=== PATIENT | male | born 1965 ===

== ENCOUNTER 2021-02-20 13:58 | Emergency (ER) | payer OTHER, SELFPAY ==
--- NOTE | ~2021-02-20 | XR_ITS ---
EXAMINATION: XR chest 2V EXAM DATE: 02/20/2021 14:54 INDICATION: Shortness of breath and back pain. TECHNIQUE: Frontal and lateral projections of the chest obtained and reviewed. There is no prior marcos dy for comparison. FINDINGS: There are moderate bilateral subpulmonic pleural effusions with adjacent multisegmental ate lectasis. There is pulmonary vascular congestion edema. Probable CHF exacerbation. Pneumonia not excl udable. There is no pneumothorax suspected. Cardiac silhouette obscured by the pleural effusions. The re are no osseous abnormalities identified. IMPRESSION: 1. Moderate pleural effusions, adjacent multisegmental atelectasis. 2. Probable CHF exacerbation. 3. Pneumonia not excludable. Reviewed, dictated and finalized at location B.
[2021-02-20 14:13] VITALS: BP 107/78; PULSE 106; RESP 18; TEMP 36.7; O2SAT 100
--- NOTE | 2021-02-20 14:46 | ECG_ITS ---
Measurements Intervals [place] Rate: 97 P: 49 [place]: 145 QRS: -55 QRSD: 89 T: 146 QT: 326 QTc: 414 Interpretive Statements SINUS RHYTHM WITH MARKED SINUS ARRHYTHMIA POSSIBLE LEFT ATRIAL ENLARGEMENT LEFT ANTERIOR FASCICULAR BLOCK CANNOT RULE OUT SEPTAL INFARCT, AGE INDETERMINATE ANTERIOR INFARCT- PROBABLY RECENT BASELINE ARTIFACT- I, II, AVR, AVL, AVF, V1, V3-V4, V6 ABNORMAL ECG Electronically Signed On 02-20-2021 20:24:56 CDT by Gavin Contreras D.O.
[2021-02-20 15:05] VITALS: RESP 28
--- NOTE | 2021-02-20 15:08 | ED.SOB ---
HPI - SOB/Dyspnea General Chief Complaint: Shortness of Breath/Dyspnea Stated Complaint: shortness of breath Time Seen by Provider: 02/20/21 14:28 Source: patient, family and RN notes reviewed Mode of arrival: ambulatory Limitations: no limitations History of Present Illness HPI Narrative: Patient presents today complaining of a 10 to 15-day history of shortness of breath that has been slightly improving since onset, and belching. States his symptoms began suddenly. He denies any current chest pain, abdominal pain, palpitations or racing heartbeat, dizziness or lightheadedness, swelling, wheezing. He states a very sporadic dry cough, but denies any recent illness or sick symptoms. States he has some pain in the left chest and back, but only with bending motion. His shortness of breath is worse with exertion. Denies history of GERD or heartburn. He has tried no [id number] treatment for symptoms prior to arrival. Denies any history of asthma or COPD. He is a non-smoker. He does not have a primary care doctor. He recently had some basic labs drawn when they were offered free at his [facility], and states they were normal. Denies any health history. Does not take any medications. MD elicited complaint: shortness of breath Related Data Home Medications Medication Instructions Recorded Confirmed No Home Medications 02/20/21 02/20/21 Allergies Allergy/AdvReac Type Severity Reaction Status Date / Time No Known Allergies Allergy Verified 02/20/21 14:22 Review of Systems Review of Systems: Narrative: CONSTITUTIONAL: Denies body aches, fever, chills, or sweats. EYES: Denies visual changes, redness, or discharge. ENT: Denies rhinorrhea, congestion, sore throat, or otalgia. CARDIOVASCULAR: Denies chest pain, palpitations, or edema. RESPIRATORY: + Shortness of breath, sporadic dry cough GASTROINTESTINAL: Denies abdominal pain, nausea, vomiting, or diarrhea.+ Belching GENITOURINARY: Denies dysuria or hematuria. SKIN: Denies rash, itching, or wounds. MUSCULOSKELETAL: Denies back pain, joint pain, or myalgia. NEUROLOGIC: Denies headache, numbness, tingling, or weakness. PSYCH: Denies depression or anxiety. PMFSH Comments At time of signature, I have reviewed and agree with nursing past medical, surgical, social and family history unless otherwise noted. Please see nursing chart for further information. There is no relevant family history pertinent to the presenting complaint Exam Narrative: Exam Narrative: GENERAL: Well-appearing, well-nourished, and in no acute distress. HEAD: Normocephalic, atraumatic. EYES: EOMI. No redness or drainage. Conjunctivae normal. ENT: Mucous membranes pink and moist. NECK: Normal AROM. Supple. No lymphadenopathy. CHEST: Clear to auscultation. Tachypnea. Patient breathing very shallowly and was unable to take a deep breath. HEART: Regular rhythm. Tachycardia. No murmur appreciated. Normal peripheral pulses. ABDOMEN: Soft, nontender, nondistended, normal active bowel sounds. MUSCULOSKELETAL: No bony tenderness. EXTREMITIES: Normal range of motion. No edema. SKIN: Warm, dry, no rash. Capillary refill normal. Normal skin turgor. NEURO: No focal deficits. Alert and oriented x3. Gait steady. PSYCH: Normal affect. No signs of depression or anxiety. Course Vital Signs Vital signs: Vital Signs Temperature 98.1 F 02/20/21 14:13 Pulse Rate 106 H 02/20/21 14:13 Respiratory Rate 18 02/20/21 14:13 Blood Pressure 107/78 02/20/21 14:13 Pulse Oximetry 100 02/20/21 14:13 Temperature 98.1 F 02/20/21 14:13 Pulse Rate 106 H 02/20/21 14:13 Respiratory Rate 28 H 02/20/21 15:05 Blood Pressure 107/78 02/20/21 14:13 Pulse Oximetry 100 02/20/21 14:13 Reviewed. RR 28 during my exam. Transfer Transfered to: [place] Transportation: Other (Private vehicle) Transfer rationale: Shortness of breath Accepting physician: Misael Martin PA-C MDM - SOB/Dyspnea ECG Data
== END 2021-02-20 15:19 | disposition short-term general hospital (02) ==
PROVIDERS: Emergency Provider Nurse Practitioner
DX: R06.02 Shortness of breath (principal)
CPT/HCPCS: 71046; 93005; 99213; G0463

== ENCOUNTER 2021-02-20 15:42 | Inpatient (IN) | payer OTHER, SELFPAY ==
--- NOTE | ~2021-02-20 | XR_ITS ---
XR chest 2V 02/22/2021 09:38 Indication: CHF Procedure: PA and lateral views of the chest Comparison: 02/20/2021 Findings: Interval resolution of edema. Small residual effusions with compressive atelectasis. No foc al pneumonia or pneumothorax. No acute osseous abnormality. Impression: 1: Small pleural effusions with underlying compressive atelectasis. Reviewed, dictated and finalized at location A. Impression: 1: Small pleural effusions with underlying compressive atelectasis.
--- NOTE | ~2021-02-20 | XR_ITS ---
EXAMINATION: XR chest 2V DATE: 02/24/2021 13:01 INDICATION: Congestive heart failure. TECHNIQUE: Frontal and lateral views of the chest were obtained. COMPARISON: Chest 2 views 02/22/2021 FINDINGS: There are small pleural effusions. There are airspace opacities at the lung bases. No pneum othorax. The heart size is normal. IMPRESSION: 1. Small pleural effusions with worsening on the right. 2. Airspace opacities at the lung bases, likely atelectasis. Reviewed, dictated and finalized at location B.
--- NOTE | ~2021-02-20 | CT_ITS ---
EXAMINATION: CT brain wo con DATE: 02/25/2021 09:26 INDICATION: Head injury. TECHNIQUE: Computed tomography (CT) of the head was performed without intravenous contrast. The mA wa s adjusted according to patient size. Iterative reconstruction technique was employed. The dose-lengt h product was 605.33 mGy-cm. COMPARISON: None FINDINGS: There is no intracranial hemorrhage, acute infarction, or abnormal intracranial mass lesion . The ventricles are normal in size. The orbits are normal. There is mild mucosal thickening in the p aranasal sinuses. The mastoid air cells are normal. There is frontal scalp soft tissue swelling. IMPRESSION: 1. Normal brain. Reviewed, dictated and finalized at location B. IMPRESSION: 1. Normal brain.
--- NOTE | ~2021-02-20 | XR_ITS ---
EXAMINATION: XR chest 2V DATE: 02/20/2021 17:01 INDICATION: Shortest of breath. TECHNIQUE: Frontal and lateral views of the chest were obtained on 3 radiographs. COMPARISON: Chest 2 views at 2:50 PM FINDINGS: There are small pleural effusions. There is a diffuse interstitial pattern, consistent with mild pulmonary edema. No pneumothorax. The heart size is normal. IMPRESSION: 1. Mild pulmonary edema. 2. Small pleural effusions. Reviewed, dictated and finalized at location A.
[2021-02-20 16:33] VITALS: BP 105/83; PULSE 104; RESP 18; TEMP 36.3; O2SAT 99
--- NOTE | 2021-02-20 16:35 | ECG_ITS ---
Measurements Intervals [place] Rate: 102 P: 42 [place]: 130 QRS: -37 QRSD: 86 T: 113 QT: 343 QTc: 447 Interpretive Statements SINUS TACHYCARDIA POSSIBLE LEFT ATRIAL ENLARGEMENT LEFT AXIS DEVIATION CANNOT RULE OUT SEPTAL INFARCT, AGE INDETERMINATE SUBTLE ANTERIOR ST ELEVATION MYOCARDIAL INFARCT- ACUTE BASELINE ARTIFACT- I, III, AVR, AVL, AVF, V6 ABNORMAL ECG Electronically Signed On 02-20-2021 20:27:15 CDT by Gavin Contreras D.O.
[2021-02-20 16:58] LABS: Basophils Absolute Auto 0.1 K/mm3 (0.0-0.1); Basophils Percent Auto 0.8 % (0.2-1.2); Eosinophils Absolute Auto 0.3 K/mm3 (0-0.3); Eosinophils Percent Auto 3.2 % (0-4.4); Hematocrit 38.7 % (42.0-52.0); Hemoglobin 12.9 g/dL (14.0-18.0); Immature Granulocyte Absolute 0.02 K/mm3 (0.00-0.031); Immature Granulocyte Percent A 0.3 % (0-0.5); Lymphocytes Absolute Auto 2.02 K/mm3 (0.9-3.2); Lymphocytes Percent Auto 26.1 % (18.3-44.2); Mean Corpuscular HGB Conc 33.3 g/dl (32-36); Mean Corpuscular Hemoglobin 28.5 pg (26-34); Mean Corpuscular Volume 85.6 fl (80-100); Mean Platelet Volume 9.2 fl (7.4-10.4); Monocytes Absolute Auto 0.7 K/mm3 (0.1-0.6); Monocytes Percent Auto 9.3 % (2.6-8.5); Neutrophils Absolute Auto 4.7 K/mm3 (1.3-6.7); Neutrophils Percent Auto 60.3 % (45.5-73.1); Platelet Count Result 322 k/mm3 (150-375); Red Blood Count 4.52 M/mm3 (4.6-6.20); Red Cell Distribution Width 13.7 % (11.5-14.5); White Blood Count 7.8 K/mm3 (4.5-10.0)
[2021-02-20 17:11] LABS: Anion Gap 5 mmol/L (8-16); Blood Urea Nitrogen 8 mg/dL (9-20); Calcium 9.8 mg/dL (8.4-10.2); Carbon Dioxide 29 mmol/L (22-30); Chloride 103 mmol/L (98-107); Estimated CRCL calculation 88 ml/min; Estimated Glomerular Filt Rate > 60; Glucose 86 mg/dL (75-110); Potassium 4.1 mmol/L (3.4-5.0); Sodium 137 mmol/L (137-145)
[2021-02-20 17:23] VITALS: BP 128/96; PULSE 104; PULSE 109; RESP 31; O2SAT 100
[2021-02-20 17:27] LABS: Troponin I 0.126 ng/mL (0.000-0.034)
[2021-02-20 18:03] LABS: NT Pro B Type Natriuretic Pept 4510 pg/mL (5-100)
[2021-02-20 18:04] VITALS: BP 120/93; PULSE 106; RESP 30; O2SAT 100
--- NOTE | 2021-02-20 18:18 | ED.SOB ---
HPI - SOB/Dyspnea General Chief Complaint: Shortness of Breath/Dyspnea Stated Complaint: SOB Time Seen by Provider: 02/20/21 17:25 Source: patient and family Mode of arrival: ambulatory Limitations: no limitations History of Present Illness HPI Narrative: 55-year-old male Reports a 2-week history of shortness of breath He believes that he recalls the symptoms starting rather suddenly while he was doing some sweeping Presented today because his family was worried that he had not improved He is more dyspneic with exertion He denies a cough or fever, and he denies having had any chest pain He has not gained weight and does not have any new swelling Related Data Home Medications Medication Instructions Recorded Confirmed No Home Medications 02/20/21 02/20/21 Allergies Allergy/AdvReac Type Severity Reaction Status Date / Time No Known Allergies Allergy Verified 02/20/21 14:22 Review of Systems Review of Systems: All systems reviewed & are unremarkable except as noted in HPI and below Constitutional: Constitutional: Reports no additional constitutional complaints, Denies chills, Denies fever(s) and Denies headache(s) Eyes: Eyes: Reports no additional eye complaints and Denies change in vision ENT: Denies headache(s) and Denies sore throat Cardiovascular: Cardiovascular: Denies chest pain, Denies radiating jaw, neck or arm pain and Denies dyspnea Respiratory: Respiratory: Reports cough (Rarely) and Reports dyspnea Gastrointestinal: Gastrointestinal: Denies abdominal pain, Denies diarrhea and Denies vomiting Genitourinary: Genitourinary: Denies dysuria and Denies urinary frequency Musculoskeletal: Musculoskeletal: Denies deformity, Denies arthralgias, Denies joint swelling and Denies numbness Integumentary/Breasts: Skin/Breast: Denies rash and Denies wounds Neurologic: Denies headache(s), Denies focal weakness and Denies numbness Psychiatric: Psychiatric: Reports no additional psychiatric complaints Endocrine: Endocrine: Reports no additional endocrine complaints Hematologic/Lymphatic: Hematologic/Lymphatic: Reports no additional hematologic/lymphatic complaints Allergic/Immunologic: Allergic/Immunologic: Reports no additional allergic/immunologic complaints Exam Const: General: cooperative, no acute distress and alert Orientation/consciousness: patient oriented x3 (alert) HENMT: Head: normal to inspection, normocephalic and atraumatic Ears: external ears normal General nose exam: no epistaxis Eyes: Conjunctivae: conjunctivae normal EOM: EOMs intact bilaterally Neck: Neck: normal visual inspection, supple and no JVD Other: No JVD Resp: Effort & Inspection: normal respiratory effort and not labored Auscultation: clear to auscultation bilaterally, no rales, no rhonchi, no wheezes and other (BS =) Other: Breath sounds are decreased at the bases on both sides Cardio: Rate: regular rate and tachycardic Rhythm: regular rhythm Heart sounds: no murmurs GI: GI Palp: Yes Soft to palpation and No Tenderness to palpation present (GI) Skin: General skin exam: normal color and no rashes or lesions noted Neuro: General: patient oriented x3 (alert) and moves all extremities Speech: normal speech Extrem: General: normal to inspection Other: Trace edema, no tenderness Psych: Affect: normal affect Course Vital Signs Vital signs: Vital Signs Temperature 36.3 C L 02/20/21 16:33 Pulse Rate 104 H 02/20/21 16:33 Respiratory Rate 18 02/20/21 16:33 Blood Pressure 105/83 02/20/21 16:33 Pulse Oximetry 99 02/20/21 16:33 Temperature 36.3 C L 02/20/21 16:33 Pulse Rate 106 H 02/20/21 18:04 Respiratory Rate 30 H 02/20/21 18:04 Blood Pressure 120/93 H 02/20/21 18:04 Pulse Oximetry 100 02/20/21 18:04 MDM - SOB/Dyspnea Lab Data Result diagrams: 02/20/21 16:49 02/20/21 16:49 Labs: Lab Results 02/20/21 02/20/21 02/20/21 Range/Unit
[2021-02-20] MEDS: POTASSIUM CHLORIDE 20 MEQ PACKET (FOR LIQUID) 40 MEQ PO (18:47)
[2021-02-20] MEDS: FUROSEMIDE INJ 40 MG/4 ML VIAL IV PUSH (18:48)
[2021-02-20 19:03] LABS: CRP 1.5 mg/dL (<1.0)
[2021-02-20 19:13] LABS: Erythrocyte Sedimentation Rate 27 mm/hr (0-20)
--- NOTE | 2021-02-20 20:31 | PM.IMHP ---
H&P: HPI History of Present Illness Date/Time: 02/20/21 20:31 this is a 55-year-old male patient who has no past medical history. The patient stated he has been short of breath for the last week. The patient had been seen in the urgent care at the [facility] with complaints of shortness of breath. He had no complaints of chest pain or abdominal pain. No complaints of palpitations or racing heart rate. No complaints of dizziness lightheadedness swelling or do wheezing. He had no fever chills. No history of asthma or COPD. He is a nonsmoker nondrinker. He recently had some basic labs drawn 1 they offered him free labs at his [facility] and states that they were normal. He has not had any surgeries or any history of any heart disease. His father had in his 70s from a myocardial infarction. At the urgent care was read as possible left atrial enlargement left anterior fascicular block. The patient was sent to the hospital. As a sinus tachycardia possible left arterial enlargement cannot rule out septal infarction age indeterminate. The patient denies any orthopnea but has dyspnea on his exertion. Pleural effusions adjacent multi segmental atelectasis. Probable CHF exacerbation pneumonia not excludable. Repeat chest x-ray was read as mild pulmonary edema. Small pleural effusions.. Therefore pneumonia was ruled out. Patient's troponin was noted to be 0.126. C reactive protein 1.5 BNP 4510. The patient was given IV Lasix as well as potassium. I requested that cardiology be consulted due to onset of congestive heart failure and elevated troponins. Most likely the elevated troponin is from congestive heart failure however the patient needs to be ruled out for coronary artery disease. The patient is being admitted to inpatient services on the date of service of 02/20/2021. Chief Complaint: Dyspnea on exertion Review of Systems Review of Systems: All systems reviewed & are unremarkable except as noted in HPI and below Constitutional: Constitutional: Reports as per HPI and Reports no additional constitutional complaints Eyes: Eyes: Reports as per HPI and Reports no additional eye complaints ENT: Reports system reviewed and no additional complaints, except as documented and Reports Normal hearing present Cardiovascular: Cardiovascular: Reports no additional cardiovascular complaints Respiratory: Respiratory: Reports no additional respiratory complaints and Reports no additional respiratory complaints Gastrointestinal: Gastrointestinal: Reports as per HPI and Reports no additional gastrointestinal complaints Musculoskeletal: Musculoskeletal: Reports no additional musculoskeletal complaints Integumentary/Breasts: Skin/Breast: Reports system reviewed and no additional complaints, except as docu and Reports as per HPI Neurologic: Reports system reviewed and no additional complaints, except as documented, Reports as per HPI and Reports Normal hearing present Psychiatric: Psychiatric: Reports no additional psychiatric complaints and Reports as per HPI Endocrine: Endocrine: Reports no additional endocrine complaints Hematologic/Lymphatic: Hematologic/Lymphatic: Reports no additional hematologic/lymphatic complaints Allergic/Immunologic: Allergic/Immunologic: Reports no additional allergic/immunologic complaints [facility] Past Medical History Medical History (Updated 02/20/21 @ 20:42 by Yareli Thrasher NP) No pertinent past medical history Surgical History Surgical History (Updated 02/20/21 @ 20:37 by Yareli Thrasher NP) No pertinent past surgical history Family History Family History (Updated 02/20/21 @ 20:38 by Yareli Thrasher NP) Mother Cancer at the age of 65 Father Acute myocardial infarction at the age of 75 Social History Social History (Updated 02/20/21 @ 20:39 by Yareli Thrasher NP) Social History: The [place] is [place]. He has 2 daug
[2021-02-20 20:39] VITALS: BP 131/62; PULSE 103; RESP 18; O2SAT 100
[2021-02-20 22:00] VITALS: PULSE 104
[2021-02-20 22:05] VITALS: BP 118/84; PULSE 114; RESP 16; TEMP 36.4; O2SAT 99; BMI 27.7
--- NOTE | 2021-02-20 23:36 | PC.NURSE ---
This patient, Allison Arenas, was admitted to IMU Room 213-01. Patient/family oriented to hospital policies and general routines including ID bracelet, bed and alarms, visiting hours, pain management, procedures, bathroom and other care routines, personal items, smoking policy, room service/diet, and visiting hours. Information on how to activate the Rapid Response Team has been discussed. Patient/Family are encouraged to report perceived risks to care and to ask questions if they do not understand what they are told or what they should do.
--- NOTE | 2021-02-20 23:40 | PC.NURSE ---
Pt states he had 1st covid vaccine 01/12. Unable to get 2nd vaccine due to symptoms that brought him to ER.
[2021-02-21] VITALS (16 sets, daily range): BP systolic 94–103; BP diastolic 57–75; PULSE 91–117; RESP 16–22; TEMP 35.9–37.2; O2SAT 98–100
[2021-02-21 00:24] LABS: Troponin I 0.113 ng/mL (0.000-0.034)
[2021-02-21 05:47] LABS: Alanine Aminotransferase 18 U/L (4-50); Albumin Level 3.5 g/dL (3.5-5.1); Alkaline Phosphatase 88 U/L (38-126); Anion Gap 4 mmol/L (8-16); Aspartate Amino Transferase 25 U/L (17-59); Bilirubin,Total 0.4 mg/dL (0.2-1.3); Blood Urea Nitrogen 8 mg/dL (9-20); Calcium 8.7 mg/dL (8.4-10.2); Carbon Dioxide 26 mmol/L (22-30); Chloride 104 mmol/L (98-107); Estimated CRCL calculation 77 ml/min; Estimated Glomerular Filt Rate > 60; Glucose 102 mg/dL (75-110); Potassium 3.6 mmol/L (3.4-5.0); Sodium 134 mmol/L (137-145)
[2021-02-21 05:49] LABS: Basophils Absolute Auto 0.1 K/mm3 (0.0-0.1); Basophils Percent Auto 0.8 % (0.2-1.2); Eosinophils Absolute Auto 0.2 K/mm3 (0-0.3); Eosinophils Percent Auto 3.1 % (0-4.4); Hematocrit 35.3 % (42.0-52.0); Hemoglobin 11.9 g/dL (14.0-18.0); Immature Granulocyte Absolute 0.03 K/mm3 (0.00-0.031); Immature Granulocyte Percent A 0.4 % (0-0.5); Lymphocytes Absolute Auto 1.71 K/mm3 (0.9-3.2); Lymphocytes Percent Auto 23.9 % (18.3-44.2); Mean Corpuscular HGB Conc 33.7 g/dl (32-36); Mean Corpuscular Hemoglobin 28.9 pg (26-34); Mean Corpuscular Volume 85.7 fl (80-100); Mean Platelet Volume 9.3 fl (7.4-10.4); Monocytes Absolute Auto 0.8 K/mm3 (0.1-0.6); Monocytes Percent Auto 11.5 % (2.6-8.5); Neutrophils Absolute Auto 4.3 K/mm3 (1.3-6.7); Neutrophils Percent Auto 60.3 % (45.5-73.1); Platelet Count Result 324 k/mm3 (150-375); Red Blood Count 4.12 M/mm3 (4.6-6.20); Red Cell Distribution Width 13.9 % (11.5-14.5); White Blood Count 7.1 K/mm3 (4.5-10.0)
[2021-02-21 06:07] LABS: Troponin I 0.099 ng/mL (0.000-0.034)
[2021-02-21 07:06] LABS: Free T4 Free Thyroxine Reflex 1.57 ng/dL (0.78-2.19)
[2021-02-21] MEDS: FUROSEMIDE INJ 40 MG/4 ML VIAL 20 MG IV PUSH ×2 (07:08→17:34)
[2021-02-21 07:56] LABS: Total Triiodothyronine (T3) 1.19 NG/ML (0.97-1.69)
[2021-02-21] MEDS: ENOXAPARIN 40 MG/0.4 ML SYRINGE SUB-Q (09:04)
[2021-02-21] MEDS: ASPIRIN 81 MG CHEWABLE TABLET PO (09:06)
--- NOTE | 2021-02-21 11:07 | PM.IMPN ---
Progress Note: A&P Assessment and Plan (1) Elevated troponin: Code(s): R77.8 - Other specified abnormalities of plasma proteins Status: Acute Assessment and Plan: Could be related to new onset of congestive heart failure. The patient has just been short of breath and no complaints of chest pain. However cardiology has been consulted. He has an abnormal EKG as well. Possible Q-wave?? An echo has been ordered. Will continue to trend. (2) New onset of congestive heart failure: Code(s): I50.9 - Heart failure, unspecified Status: Acute Assessment and Plan: The patient has dyspnea on exertion. He has had no previous medical conditions. Will get an echo and continue with his IV Lasix for now. The patient has good output at this time and states that he started to feel much better now that he has been urinating quite frequently. Additional Plan Patient is currently being treated for acute SC and also congestive heart failure. Will monitor labs and consult Cardiology. Subjective Date/time seen: 02/21/21 11:07 Interval history: Patient was seen during the morning rounds today. Mild shortness of breath no chest pain. No fever no chills. Mood stable. Review of Systems Review of Systems: All systems reviewed & are unremarkable except as noted in HPI and below Constitutional: Constitutional: Reports as per HPI and Reports no additional constitutional complaints Eyes: Eyes: Reports as per HPI and Reports no additional eye complaints ENT: Reports system reviewed and no additional complaints, except as documented and Reports Normal hearing present Cardiovascular: Cardiovascular: Reports no additional cardiovascular complaints Respiratory: Respiratory: Reports no additional respiratory complaints and Reports no additional respiratory complaints Gastrointestinal: Gastrointestinal: Reports as per HPI and Reports no additional gastrointestinal complaints Musculoskeletal: Musculoskeletal: Reports no additional musculoskeletal complaints Integumentary/Breasts: Skin/Breast: Reports system reviewed and no additional complaints, except as docu and Reports as per HPI Neurologic: Reports system reviewed and no additional complaints, except as documented, Reports as per HPI and Reports Normal hearing present Psychiatric: Psychiatric: Reports no additional psychiatric complaints and Reports as per HPI Endocrine: Endocrine: Reports no additional endocrine complaints Hematologic/Lymphatic: Hematologic/Lymphatic: Reports no additional hematologic/lymphatic complaints Allergic/Immunologic: Allergic/Immunologic: Reports no additional allergic/immunologic complaints Exam Const: General: cooperative, healthy appearing, comfortable, no acute distress, well developed, alert, awake and Physically active Nutritional Appearance: average body habitus and well nourished Orientation/consciousness: oriented to person, oriented to place, oriented to time and patient oriented x3 Limitations: no limitations HENMT: Head: normal to inspection, No palpable skull fracture present, normocephalic and atraumatic Ears: hearing grossly normal bilaterally and external ears normal General nose exam: Normal external nose present, Normal nares present and No nasal polyps present Eyes: General: appearance normal, both eyes and all related structures Alignment and Position: alignment normal Periorbital: periorbital findings normal Eyelids: eyelids normal Conjunctivae: conjunctivae normal Sclera: sclerae normal Cornea: corneas normal Pupils: Equal, round and reactive pupils present EOM: EOMs intact bilaterally Neck: Neck: normal visual inspection, full ROM and no lymphadenopathy Chest: Chest palpation & inspection: normal inspection of the chest Resp: Effort & Inspection: normal respiratory effort Auscultation: clear to auscultation bilaterally Percussion: percussion normal Cardio: Palpation: normal PMI Rate: regular rate
--- NOTE | 2021-02-21 16:08 | PM.CNCAR ---
Assessment and Plan Assessment and plan (1) New onset of congestive heart failure: Code(s): I50.9 - Heart failure, unspecified Status: Acute Assessment and Plan: -2D echocardiogram pending. Discussed at length with patient and his daughter importance of establishing LV function, wall motion abnormalities. If significant LV dysfunction noted coronary angiography will be advised for definitive assessment of coronary anatomy given abnormal EKG, new onset heart failure. Otherwise ischemic evaluation will be advised and if preserved EF noninvasive assessment an option. -Explained my concerns given his abnormal EKG, elevated BNP, new onset heart failure at presentation, elevated troponin, and tachycardia. He is responding very well to intravenous diuresis which should continue for now. May be able to transition within the next 24 hours to oral regimen. Monitor renal function electrolytes closely. he is not providing clear anginal symptoms yet progressive TONEY likely anginal equivalent. we discussed at length ischemic versus nonischemic etiology for LV dysfunction if documented but that I am very concerned he either has significant LV dysfunction and or underlying CAD that must be elucidated. Patient and his daughter verbalized understanding and agreed with plan of care. We discussed the importance of this workup and clarification prior to discharge. -Will optimize medical therapy beta-felix, LANCE-inhibitor, and statin therapy for clinical suspicion of LV dysfunction and underlying CAD. -Check lipid panel. All questions answered to patient and his daughter satisfaction. Further recommendations to follow based on patient's response to therapy and results of echocardiogram. We discussed the possibility of coronary angiography and according to risks and potential benefits as appropriate this hospitalization. (2) Elevated troponin: Code(s): R77.8 - Other specified abnormalities of plasma proteins Status: Acute Assessment and Plan: Fairly flat curve most likely type 2 infarct secondary to strain related to decompensated heart failure with demand ischemia and concern for underlying LV systolic dysfunction. Cannot exclude underlying CAD. no anginal symptoms. EKG reveals age indeterminate anterior NM. Unlikely acute coronary syndrome and/or plaque rupture. nonetheless, recommend aspirin 81 mg daily, statin, beta-felix. Reasonable to change to Lovenox 1 milligram/kilogram subcutaneous Q 12 hour for the next 24-48 hours. Check BMP, CBC in a.m.. Continue telemetry to monitor for ventricular arrhythmias. Will review 2D Echo when available. (3) Abnormal EKG: Code(s): R94.31 - Abnormal electrocardiogram [ECG] [EKG] Status: Acute Assessment and Plan: Suggestive of anterior myocardial infarction. Workup as above. (4) Bilateral pleural effusion: Code(s): J90 - Pleural effusion, not elsewhere classified Status: Acute Assessment and Plan: Likely somewhat chronic and progressive secondary to decompensated heart failure. TSH mildly elevated. No clinical suggestion of acute respiratory infection/ pneumonia. History of Present Illness History of Present Illness Consult date/time: date of service: 02/21/21 16:08 Cardiology consultation at the request of Yareli Thrasher of the [facility] service for opinion regarding shortness of breath, elevated troponin, new onset CHF. Requesting physician: Yareli Thrasher NP Consult reason: congestive heart failure Reason For Visit: new onset chf Narrative: Patient is a very pleasant 55-year-old [place] male with no known previous past medical history who presented to the emergency department with complaints of progressive shortness of breath for the past 2 weeks. Patient denies chest pain at any time. He initially presented to the [facility] and [facility] with shortness of breath and due to abnormal EKG was referred t
[2021-02-21 17:26] LABS: Cholesterol 177 mg/dL (0-200); HDL Direct 34 mg/dL; Triglycerides 104 mg/dL (<150)
[2021-02-21 17:37] LABS: LDL Cholesterol Direct 132 mg/dL
[2021-02-21] MEDS: ENOXAPARIN 100 MG/ML SYRINGE 90 MG SUB-Q (17:38)
[2021-02-21] MEDS: carvediloL 3.125 MG TABLET PO (20:19)
[2021-02-22] VITALS (17 sets, daily range): BP systolic 91–112; BP diastolic 47–70; PULSE 87–100; RESP 16–20; TEMP 36.3–37.1; O2SAT 93–100
[2021-02-22 06:20] LABS: Anion Gap 6 mmol/L (8-16); Blood Urea Nitrogen 10 mg/dL (9-20); Calcium 9.2 mg/dL (8.4-10.2); Carbon Dioxide 26 mmol/L (22-30); Chloride 102 mmol/L (98-107); Estimated CRCL calculation 77 ml/min; Estimated Glomerular Filt Rate > 60; Glucose 102 mg/dL (75-110); Potassium 3.5 mmol/L (3.4-5.0); Sodium 134 mmol/L (137-145)
[2021-02-22] MEDS: FUROSEMIDE INJ 40 MG/4 ML VIAL 20 MG IV PUSH (06:25)
[2021-02-22] MEDS: ENOXAPARIN 100 MG/ML SYRINGE 90 MG SUB-Q ×2 (06:25→18:24)
--- NOTE | 2021-02-22 09:20 | PM.IMPN ---
Progress Note: A&P Assessment and Plan (1) Elevated troponin: Code(s): R77.8 - Other specified abnormalities of plasma proteins Status: Acute Assessment and Plan: Could be related to new onset of congestive heart failure. The patient has just been short of breath and no complaints of chest pain. However cardiology has been consulted. He has an abnormal EKG as well. Possible Q-wave?? An echo has been ordered. Will continue to trend. (2) New onset of congestive heart failure: Code(s): I50.9 - Heart failure, unspecified Status: Acute Assessment and Plan: The patient has dyspnea on exertion. He has had no previous medical conditions. Will get an echo and continue with his IV Lasix for now. The patient has good output at this time and states that he started to feel much better now that he has been urinating quite frequently. (3) Hypothyroid: Code(s): E03.9 - Hypothyroidism, unspecified Status: Acute Assessment and Plan: Will start low-dose Synthroid and monitor TSH is patient Additional Plan Patient is currently being treated for acute UT and also congestive heart failure. Will monitor labs and X ray Cardiology consult and had noted will discuss with Cardiology about discharge plan. Subjective Date/time seen: 02/22/21 09:20 Interval history: Patient was seen during the morning rounds today. Shortness of breath is better now, no chest pain. No fever no chills. Mood stable. Review of Systems Review of Systems: All systems reviewed & are unremarkable except as noted in HPI and below Constitutional: Constitutional: Reports as per HPI and Reports no additional constitutional complaints Eyes: Eyes: Reports as per HPI and Reports no additional eye complaints ENT: Reports system reviewed and no additional complaints, except as documented and Reports Normal hearing present Cardiovascular: Cardiovascular: Reports no additional cardiovascular complaints Respiratory: Respiratory: Reports no additional respiratory complaints and Reports no additional respiratory complaints Gastrointestinal: Gastrointestinal: Reports as per HPI and Reports no additional gastrointestinal complaints Musculoskeletal: Musculoskeletal: Reports no additional musculoskeletal complaints Integumentary/Breasts: Skin/Breast: Reports system reviewed and no additional complaints, except as docu and Reports as per HPI Neurologic: Reports system reviewed and no additional complaints, except as documented, Reports as per HPI and Reports Normal hearing present Psychiatric: Psychiatric: Reports no additional psychiatric complaints and Reports as per HPI Endocrine: Endocrine: Reports no additional endocrine complaints Hematologic/Lymphatic: Hematologic/Lymphatic: Reports no additional hematologic/lymphatic complaints Allergic/Immunologic: Allergic/Immunologic: Reports no additional allergic/immunologic complaints Exam Const: General: cooperative, healthy appearing, comfortable, no acute distress, well developed, alert, awake and Physically active Nutritional Appearance: average body habitus and well nourished Orientation/consciousness: oriented to person, oriented to place, oriented to time and patient oriented x3 Limitations: no limitations HENMT: Head: normal to inspection, No palpable skull fracture present, normocephalic and atraumatic Ears: hearing grossly normal bilaterally and external ears normal General nose exam: Normal external nose present, Normal nares present and No nasal polyps present Eyes: General: appearance normal, both eyes and all related structures Alignment and Position: alignment normal Periorbital: periorbital findings normal Eyelids: eyelids normal Conjunctivae: conjunctivae normal Sclera: sclerae normal Cornea: corneas normal Pupils: Equal, round and reactive pupils present EOM: EOMs intact bilaterally Neck: Neck: normal visual inspection, full ROM and no lymphadenopathy
[2021-02-22] MEDS: lisinopriL 2.5 MG TABLET PO (09:32)
[2021-02-22] MEDS: carvediloL 3.125 MG TABLET PO ×2 (09:32→21:00)
[2021-02-22] MEDS: ATORVASTATIN 40 MG TABLET PO (09:32)
[2021-02-22] MEDS: ASPIRIN 81 MG CHEWABLE TABLET PO (09:33)
[2021-02-22] MEDS: LEVOTHYROXINE SODIUM 25 MCG TABLET PO (11:47)
--- NOTE | 2021-02-22 12:08 | PM.PNCARD ---
Progress Note: A&P Assessment and Plan (1) New onset of congestive heart failure: Code(s): I50.9 - Heart failure, unspecified Status: Acute Assessment and Plan: Once again, explained my concerns given his abnormal EKG, elevated BNP, new onset heart failure at presentation, elevated troponin, and tachycardia. He is responding very well to intravenous diuresis. -Transition to po Lasix 40mg daily. -I feel it is in this patient's best interest to clarify LV function prior to discharge. Unfortunately, his Echo was not obtained yesterday as ordered. If Echo reveals significant LV dysfunction and/or concerning wall motion abnormalities discussed coronary angiography tomorrow for clarification of coronary anatomy. If EF stable and or wall motion unremarkable may consider outpatient workup. Discussed risks, benefits, alternatives to LHC including but not limited to bleeding/infection, . He is agreeable to coronary angiography if advised. -However, my plan is to attempt to expedite his workup and clarify plan of care if significant LV dysfunction is identified. As such, I will keep him NPO after midnight for the possibility he may undergo coronary angiography tomorrow. -Hold Lovenox tomorrow morning for possible angiography pending review of Echo. -I have instructed nursing staff to have his echocardiogram obtained 1st thing in the morning and review this study with recommendations to follow. Discussed in detail with the patient. Patient verbalized understanding and agreed with plan of care. Patient may be stable for discharge tomorrow pending echo results and ultimate plan of care. As such, I would not recommend discharge home today until further clarification is obtained. -Coreg, lisinopril, statin and aspirin therapy added to his regimen which he is tolerating thus far. (2) Elevated troponin: Code(s): R77.8 - Other specified abnormalities of plasma proteins Status: Acute Assessment and Plan: Fairly flat curve most likely type 2 infarct secondary to strain related to decompensated heart failure with demand ischemia and concern for underlying LV systolic dysfunction. Cannot exclude underlying CAD. no anginal symptoms. EKG reveals age indeterminate anterior VT. Unlikely acute coronary syndrome and/or plaque rupture yet high suspicion for underlying CAD. -Aspirin 81 mg daily, statin, beta-felix. -Continue telemetry to monitor for ventricular arrhythmias. (3) Abnormal EKG: Code(s): R94.31 - Abnormal electrocardiogram [ECG] [EKG] Status: Acute Assessment and Plan: Suggestive of anterior myocardial infarction. Workup as above. (4) Bilateral pleural effusion: Code(s): J90 - Pleural effusion, not elsewhere classified Status: Acute Assessment and Plan: Stable. Clinically improving with diuresis. Subjective Date/time seen: Date of service: 02/22/21 12:08 Follow-up for new diagnosis heart failure, elevated troponin Patient feels a little better compared to yesterday. Denies dizziness, chest pain or palpitations. Denies significant exertional dyspnea. Following medications thus far. No significant ventricular arrhythmia on telemetry overnight. Unfortunately, echocardiogram was not obtained yesterday as ordered. CXR this AM much improved overall, small pleural effusions. Review of Systems Review of Systems: All systems reviewed & are unremarkable except as noted in HPI and below Constitutional: Constitutional: Reports as per HPI, Reports no additional constitutional complaints and Denies fatigue Eyes: Eyes: Reports as per HPI and Reports no additional eye complaints ENT: Reports system reviewed and no additional complaints, except as documented and Reports as per HPI Cardiovascular: Cardiovascular: Reports as per HPI, Reports no additional cardiovascular complaints, Denies chest pain, Denies diaphoresis, Denies leg edema, Denies lightheadedn
--- NOTE | 2021-02-22 14:29 | PC.NURSE ---
This patient, Allison Arenas, was transferred to [facility] on 02/22/21 at 1429. Personal belongings sent with patient. Report given to Carin HENDERSON. Appropriate documentation sent with patient.
--- NOTE | 2021-02-22 15:00 | PC.NURSE ---
pt transferred in to room 251 via wheelchair, telemetry monitoring continued, oriented to new room and environment, pt doing well working on lap top computer
[2021-02-23] VITALS (21 sets, daily range): BP systolic 80–120; BP diastolic 40–92; PULSE 90–111; RESP 14–22; TEMP 35.7–36.9; O2SAT 97–100
[2021-02-23] MEDS: LEVOTHYROXINE SODIUM 25 MCG TABLET PO (05:56)
--- NOTE | 2021-02-23 06:00 | ECHO_ITS ---
Patient Info Name: Allison Arenas Age: 55 years : 1965 Gender: Male Ht: 70 in Wt: 193 lbs BSA: 2.10 m2 HR: 105 bpm BP: 80 / 57 mmHg Heart Rhythm: Sinus Rhythm Technical Quality: Good Exam Date: 02/23/2021 8:18 AM Exam Location: [facility] Patient Status: Inpatient Admit Date: 02/20/2021 Staff Ordering Physician: Henry Davila MD Papier Mache' Molder: Cj Campoverde RDCS, RT Attending Provider: Agueda Campuzano MD Referring Physician: Giovanni MASON; Exam Type: CA echo doppler color flow Study Info Indications I50.9 - Heart failure, unspecified Complete two-dimensional, color flow and Doppler transthoracic echocardiogram is performed. Strain analysis performed. Summary 1. Complete two-dimensional, color flow and Doppler transthoracic echocardiogram is performed. 2. Strain analysis performed. 3. Left ventricular chamber dimension is mildly enlarged. 4. Left ventricular systolic function is severely reduced, estimated at 25-30%. 5. There is mildly increased left ventricular wall thickness. 6. The left ventricular diastolic function is abnormal. 7. There is sessile thrombus and mobile thrombus visualized in the left ventricle. 8. Global longitudinal strain is abnormal at -5 %. 9. The apical septum, apical lateral wall, apical inferior wall, apical anterior wall, and mid inferior wall are akinetic. 10. The basal inferior wall, mid anterior wall, basal inferoseptal, mid inferoseptal, basal anteroseptal, and mid anteroseptal are hypokinetic. 11. The apical cap is dyskinetic. 12. Left atrial chamber dimension is mildly enlarged. 13. There is mild mitral valve regurgitation. 14. There is mild tricuspid valve regurgitation. 15. Severe pulmonary hypertension, estimated pulmonary arterial systolic pressure is 75 mmHg. 16. There is mild pulmonic regurgitation. 17. There is small pericardial effusion. Left Ventricle Left ventricular chamber dimension is mildly enlarged. Left ventricular systolic function is severely reduced, estimated at 25-30%. There is mildly increased left ventricular wall thickness. The left ventricular diastolic function is abnormal. There is sessile thrombus and mobile thrombus visualized in the left ventricle. Global longitudinal strain is abnormal at -5 %. The apical septum, apical lateral wall, apical inferior wall, apical anterior wall, and mid inferior wall are akinetic. The basal inferior wall, mid anterior wall, basal inferoseptal, mid inferoseptal, basal anteroseptal, and mid anteroseptal are hypokinetic. The apical cap is dyskinetic. All other bustamante appear normal. Right Ventricle Right ventricular chamber dimension is normal. Right ventricular systolic function is normal. Left Atria Left atrial chamber dimension is mildly enlarged. Right Atria Right atrial chamber dimension is normal. Atrial Septum Intact interatrial septum visualized by color flow imaging. Aortic Valve The aortic valve is trileaflet. There is mild aortic valve sclerosis. There is no aortic valve stenosis. There is trace aortic valve regurgitation. Pulmonic Valve The pulmonic valve is normal. There is no pulmonic valve stenosis. There is mild pulmonic regurgitation. Mitral Valve The mitral valve has normal leaflets. There is no mitral valve stenosis. There is mild mitral valve regurgitation. Tricuspid Valve The tricuspid valve leaflets are normal. There is no significant tricuspid valve stenosis. There is mild tricusp
[2021-02-23] MEDS: PERFLUTREN LIPID MICROSPHERES 1.5 ML VIAL DILUTED TO 10 ML TOTAL VOLUME IV PUSH (09:17)
--- NOTE | 2021-02-23 11:59 | PM.IMPN ---
Progress Note: A&P Assessment and Plan (1) New onset of congestive heart failure: Code(s): I50.9 - Heart failure, unspecified Status: Acute Assessment and Plan: Acute combined systolic and diastolic congestive heart failure. Cardiology consulted and appreciate input. Echocardiogram completed this morning with official results now showing EF 25-30 % and abnormal diastolic function as well as sessile thrombus and mobile thrombus visualized in the left ventricle. Plan is for cardiac catheterization today for further investigation. Continue carvedilol and lisinopril. Also remains on ASA on atorvastatin. Now on oral Lasix. Will continue to monitor. Telemetry reviewed on 02/23/2021 with sinus rhythm. (2) LV (left ventricular) mural thrombus: Code(s): I51.3 - Intracardiac thrombosis, not elsewhere classified Status: Acute Assessment and Plan: LV thrombus noted on echocardiogram. Anticipate anticoagulation after completing cardiac catheterization. (3) Elevated troponin: Code(s): R77.8 - Other specified abnormalities of plasma proteins Status: Acute Assessment and Plan: Troponin elevated but decreasing. Plan for cardiac catheterization of today as noted above. Continue cardiac medications as noted above. (4) Bilateral pleural effusion: Code(s): J90 - Pleural effusion, not elsewhere classified Status: Acute Assessment and Plan: Small bilateral pleural effusions still present on X-ray on 02/22/2021. Result of acute CHF. Remains on oral Lasix. On room air. Will monitor. (5) Hypothyroid: Qualifiers: Hypothyroidism type: acquired Qualified Code(s): E03.9 - Hypothyroidism, unspecified Code(s): E03.9 - Hypothyroidism, unspecified Status: Acute Assessment and Plan: TSH slightly elevated at 5.940. Patient started on low-dose levothyroxine. Will need to repeat thyroid studies as an outpatient in 4-6 weeks. (6) DVT prophylaxis: Code(s): Z29.9 - Encounter for prophylactic measures, unspecified Status: Acute Assessment and Plan: Prophylactic Lovenox on hold room cardiac. Anticipate full anticoagulation after cardiac catheterization. Time Spent With Patient Time with patient: 25 - 35 minutes Subjective Date/time seen: 02/23/21 11:59 Interval history: Date of Service: 02/23/2021. Admitted with new onset heart failure and elevated patient states he is feeling much since diuresing. No current shortness of breath or cough. No chest pain or pressure. No swelling in his legs. No abdominal pain or vomiting. No headache or dizziness. Review of Systems Review of Systems: Narrative: Feeling much better. Constitutional: Constitutional: Denies fatigue and Denies fever(s) Eyes: Eyes: Reports no additional eye complaints ENT: Denies sore throat Cardiovascular: Cardiovascular: Denies chest pain and Denies leg edema Respiratory: Respiratory: Denies cough and Denies dyspnea Gastrointestinal: Gastrointestinal: Denies abdominal pain, Denies nausea and Denies vomiting Genitourinary: Genitourinary: Reports no additional male genitourinary complaints Musculoskeletal: Musculoskeletal: Reports no additional musculoskeletal complaints Integumentary/Breasts: Skin/Breast: Denies rash Neurologic: Denies dizziness and Denies headache(s) Psychiatric: Psychiatric: Reports no additional psychiatric complaints Exam Narrative: Exam Narrative: Awake and alert. Const: General: no acute distress HENMT: Mouth: Yes moist mucous membranes Neck: Neck: supple and no lymphadenopathy noted Resp: Auscultation: no wheezes and diminished lung sounds (Bases) Cardio: Rate: regular rate Rhythm: regular rhythm GI: Inspection: normal to inspection GI Palp: Yes Soft to palpation and No Tenderness to palpation present (GI) Auscultation: normal bowel sounds : Other: Not examined Skin: General skin exam: normal color an
--- NOTE | 2021-02-23 14:17 | WPDMODSED ---
Moderate Sedation Note-Pt Data Patient Data Diagnosis: LEFT VENTRICULAR SYSTOLIC DYSFUNCTION Present Complaint: / SHORT OF BREATH Procedure to be performed/Plan: CORONARY ANGIOGRAM Allergies Allergy/AdvReac Type Severity Reaction Status Date / Time No Known Allergies Allergy Verified 02/20/21 22:30 Home Medications Medication Instructions Recorded Confirmed Type No Home Medications 02/20/21 02/20/21 History Current Medications: Active Medications Aspirin (Aspirin 81 Mg Chewable Tablet) 81 mg PO DAILY@0800 [facility] Last Admin: 02/23/21 07:42 Dose: Not Given Documented by: Atorvastatin Calcium (Atorvastatin 40 Mg Tablet) 40 mg PO DAILY [facility] Last Admin: 02/23/21 07:42 Dose: Not Given Documented by: Carvedilol (Carvedilol 3.125 Mg Tablet) 3.125 mg PO Q12HR [facility] Last Admin: 02/23/21 07:42 Dose: Not Given Documented by: Enoxaparin Sodium (Enoxaparin 100 Mg/Ml Syringe) 90 mg SUB-Q Q12H [facility] Last Admin: 02/22/21 22:46 Dose: Not Given Documented by: Furosemide (Furosemide 40 Mg Tablet) 40 mg PO DAILY [facility] Last Admin: 02/23/21 07:42 Dose: Not Given Documented by: Levothyroxine Sodium (Levothyroxine Sodium 25 Mcg Tablet) 25 mcg PO DAILY@0630 [facility] Last Admin: 02/23/21 05:56 Dose: 25 mcg Documented by: Lisinopril (Lisinopril 2.5 Mg Tablet) 2.5 mg PO QAM [facility] Last Admin: 02/23/21 07:42 Dose: Not Given Documented by: Ondansetron HCl (Ondansetron Inj 4 Mg/2 Ml Vial) 4 mg IV PUSH Q4H PRN PRN Reason: Nausea Sedation/Anesthesia: No previous sedation/anesthesia problems (including family history). PMFSH Past Medical History Medical History No pertinent past medical history Surgical History Surgical History No pertinent past surgical history Family History Family History Mother Cancer at the age of 65 Father Cardiac arrest Social History Social History Social History: The patient is but his is [place] the [place]. He has 2 daughters and 1 of his daughters is a durable power erisa attorney for healthcare. The patient desires to be a full code. The patient is a lifelong nonsmoker. He does not use any alcohol marijuana or illicit drugs. The patient works as an [employer] Tech. Smoking status: Never smoker Second hand tobacco smoke exposure: No Alcohol intake: never Substance use: never Spiritual care concerns: No Mod Sed Physical Exam Physical Exam Pre Procedural Exam: Normal: Appearance, Throat, Airway, Lungs, Heart Rate, Heart Rhythm, Neuro Exam and Extremities and Variation: Heart Size ( PMI enlarged) Hours since solid foods: 12 Hours since liquid intake: 12 Internal Medicine - PN: Obj Da Vital Signs Vital Signs: Vital Signs - 24 hr 02/22/21 14:53 02/22/21 16:00 02/22/21 18:00 Temperature 37.1 C Pulse Rate 89 89 87 Respiratory Rate 16 Blood Pressure 101/63 Pulse Oximetry 100 02/22/21 19:55 02/22/21 20:00 02/22/21 21:00 Temperature 36.4 C Pulse Rate 96 94 98 Respiratory Rate 16 Blood Pressure 99/62 L Pulse Oximetry 99 02/23/21 00:00 02/23/21 04:00 02/23/21 04:55 Temperature 36.3 C L 36.9 C Pulse Rate 105 H 93 95 Respiratory Rate 16 16 Blood Pressure 90/40 L 80/57 L Pulse Oximetry 100 100 02/23/21 05:40 02/23/21 08:00 02/23/21 10:00 Temperature 36.9 C 36.4 C L Pulse Rate 90 97 Respiratory Rate 18 Blood Pressure 102/78 Pulse Oximetry 100 02/23/21 12:00 Temperature Pulse Rate 91 Respiratory Rate Blood Pressure Pulse Oximetry Intake/Output Intake/Output: Intake & Output 02/20/21 02/21/21 02/22/21 02/23/21 23:59 23:59 23:59 23:59 Intake Total 1360 3000 0 Output Total 4150 0 Balance -2790 3000 0 Meds/Results Medications: Active Medications Generic N
--- NOTE | 2021-02-23 14:43 | PC.NURSE ---
To aquatic life laborer per stretcher 02/23/21 2615.
--- NOTE | 2021-02-23 15:15 | WPDCARDPROC ---
Cardiac Cath Procedure Note Date of procedure:: 02/23/21 Performing physician:: Arvin Lorenzo MD Indication:: left ventricular systolic dysfunction suspicion of previous/recent anterior wall UT Brief clinical history:: this is a 55-year-old patient who without prior cardiac history entered the hospital several days ago with shortness of breath and evidence of congestive heart failure. Troponin levels are modestly elevated and declining. He is not reporting any chest pain. Electrocardiogram anterior wall Q-waves echocardiogram demonstrates anterior wall and apical akinesia as well as a significant amount of left ventricular apical clot. In this setting and angiogram has been recommended Procedure Procedure performed:: coronary angiography Sedation/Medication given:: fentanyl 50 mg Versed 2 mg case start time 2:57 p.m. case end time 3:12 p.m. sedation provided byLove Williamson RN, trained observer Access site:: right femoral Estimated blood loss:: 10-15 cc Procedure note:: patient was brought to the cardiac catheterization lab in postabsorptive state where the right femoral triangle was prepared and draped the usual fashion. Anesthesia was provided with 1% lidocaine infiltrated locally. Using modified Seldinger technique femoral artery was punctured 5 [place] vascular sheath was placed. After this left coronary angiography was performed using a standard 5 [place] FL4 catheter. This was then withdrawn and a right coronary angiogram was done using a standard 5 [place] JR4 catheter. The cineangiograms were reviewed and the case was terminated. The patient was taken to the holding area for manual sheath removal. There were no procedural complications and he left the rn cardiac cath with no evidence of a groin hematoma. Findings:: Hemodynamics: and central aorta 99/75. The left ventricle was not entered during this procedure because of significant clot burden in the LV seen on echo. The left main coronary artery is medium in caliber and free of significant disease. The left anterior descending is a medium caliber vessel somewhat small for a man of this age. The proximal 1/3 of the LAD is significantly diseased with 99% stenosis at the origin of the major diagonal branch as well. Distally the LAD is a fairly good caliber and extends around the apex providing a significant amount of a inferior perfusion as well. The LAD disease begins nearly after the ostium and extends down past the major diagonal as mentioned above. There was ZITA 3 flow in the vessel. Circumflex is a moderate caliber artery giving rise to the marginal branch is the circumflex has mild 30% stenosis in the midportion of the trunk of the vessel but no flow-limiting disease is seen. Right coronary artery is moderate caliber dominant to the posterior circulation. There is mild plaquing of the right coronary ostium but represents no more than 30% stenosis. The ostium of the right coronary has a somewhat angulated takeoff. Conclusion:: 1. Severe single-vessel coronary artery disease with subtotal occlusion of the proximal LAD angiographically did diseased area is complex there also appears to be some visible filling defect/ thrombus in the [place] diagonal branch. 2. Clinical data which appears to be most consistent with a significant anterior wall infarction which is occurred in the past in this patient was not reporting or recalling a significant chest pain event. 3. Significant amount of left ventricular clot seen on echo therefore the left ventricle was not entered during this procedure. Arvin Lorenzo MD [facility]
[2021-02-23] MEDS: SODIUM CHLORIDE 0.9% IV 1,000 ML 125 ML IV CONT (20:57)
[2021-02-23] MEDS: carvediloL 3.125 MG TABLET PO (22:09)
[2021-02-23] MEDS: ENOXAPARIN 100 MG/ML SYRINGE 90 MG SUB-Q (22:09)
[2021-02-24] VITALS (17 sets, daily range): BP systolic 95–118; BP diastolic 65–85; PULSE 86–105; RESP 14–24; TEMP 35.6–36.4; O2SAT 99–100
[2021-02-24 05:25] LABS: Anion Gap 4 mmol/L (8-16); Blood Urea Nitrogen 10 mg/dL (9-20); Calcium 8.4 mg/dL (8.4-10.2); Carbon Dioxide 25 mmol/L (22-30); Chloride 107 mmol/L (98-107); Estimated CRCL calculation 80 ml/min; Estimated Glomerular Filt Rate > 60; Glucose 105 mg/dL (75-110); Potassium 4.2 mmol/L (3.4-5.0); Sodium 136 mmol/L (137-145)
[2021-02-24] MEDS: LEVOTHYROXINE SODIUM 25 MCG TABLET PO (06:05)
[2021-02-24] MEDS: ENOXAPARIN 100 MG/ML SYRINGE 90 MG SUB-Q ×2 (06:05→17:31)
[2021-02-24] MEDS: lisinopriL 2.5 MG TABLET PO (09:13)
[2021-02-24] MEDS: ATORVASTATIN 40 MG TABLET PO (09:13)
[2021-02-24] MEDS: carvediloL 3.125 MG TABLET PO ×2 (09:13→21:13)
[2021-02-24] MEDS: FUROSEMIDE 40 MG TABLET PO (09:14)
[2021-02-24] MEDS: ASPIRIN 81 MG CHEWABLE TABLET PO (09:16)
--- NOTE | 2021-02-24 11:23 | PM.PNCARD ---
Progress Note: A&P Assessment and Plan (1) New onset of congestive heart failure: Code(s): I50.9 - Heart failure, unspecified Status: Acute Assessment and Plan: Continue current meds. Will repeat a PA and lateral chest x-ray today. (2) Elevated troponin: Code(s): R77.8 - Other specified abnormalities of plasma proteins Status: Acute Assessment and Plan: Continue current meds (3) Abnormal EKG: Code(s): R94.31 - Abnormal electrocardiogram [ECG] [EKG] Status: Acute Assessment and Plan: Suggestive of anterior myocardial infarction. Workup as above. (4) Bilateral pleural effusion: Code(s): J90 - Pleural effusion, not elsewhere classified Status: Acute Assessment and Plan: Stable. Clinically improving with diuresis. (5) Ischemic cardiomyopathy: Code(s): I25.5 - Ischemic cardiomyopathy Status: Acute Assessment and Plan: . EF 25-30% Continue carvedilol and lisinopril. Up titrate as able. Continue diuretics (6) CAD (coronary artery disease): Code(s): I25.10 - Atherosclerotic heart disease of [place] coronary artery without angina pectoris Status: Acute Assessment and Plan: High-grade proximal LAD with extension into a diagonal branch as detailed in cardiac catheterization results. Continue aspirin, enoxaparin, carvedilol, LANCE-inhibitor, statin (7) Acute systolic (congestive) heart failure: Code(s): I50.21 - Acute systolic (congestive) heart failure Status: Acute Assessment and Plan: As detailed above (8) LV (left ventricular) mural thrombus: Code(s): I51.3 - Intracardiac thrombosis, not elsewhere classified Status: Acute Assessment and Plan: On enoxaparin 1 milligram/kilogram q.12 hours Subjective Date/time seen: 02/24/21 11:23 Interval history: 55-year-old admitted with heart failure Date of service 02/24/2021: He has a subtotal LAD stenosis involving a diagonal branch. He has extensive LV thrombus also. Severe cardiomyopathy with ejection fraction 25-30%. Currently is doing okay but needs transfer to an outside facility for high risk intervention. Denies any chest pain, shortness of breath or groin pain at this point Review of Systems Review of Systems: All systems reviewed & are unremarkable except as noted in HPI and below Constitutional: Constitutional: Reports as per HPI, Reports no additional constitutional complaints and Reports fatigue Eyes: Eyes: Reports as per HPI and Reports no additional eye complaints ENT: Reports system reviewed and no additional complaints, except as documented and Reports as per HPI Cardiovascular: Cardiovascular: Reports as per HPI, Reports no additional cardiovascular complaints, Denies chest pain, Denies diaphoresis, Denies leg edema, Denies lightheadedness, Denies palpitations, Denies dyspnea and Denies dyspnea on exertion Respiratory: Respiratory: Reports as per HPI, Reports no additional respiratory complaints, Denies dyspnea and Denies dyspnea on exertion Gastrointestinal: Gastrointestinal: Reports as per HPI, Reports no additional gastrointestinal complaints, Denies abdominal pain, Denies bloating, Denies nausea, Denies vomiting and Denies hematemesis Genitourinary: Genitourinary: Reports no additional male genitourinary complaints, Reports as per HPI and Denies urinary frequency Musculoskeletal: Musculoskeletal: Reports no additional musculoskeletal complaints and Reports as per HPI Integumentary/Breasts: Skin/Breast: Reports system reviewed and no additional complaints, except as docu and Reports as per HPI Neurologic: Reports system reviewed and no additional complaints, except as documented and Reports as per HPI Psychiatric: Psychiatric: Reports no additional psychiatric complaints and Reports as per HPI Endocrine: Endocrine: Reports no additional endocrine complaints, Reports as per HPI, Reports fatigue an
--- NOTE | 2021-02-24 12:55 | PM.IMPN ---
Progress Note: A&P Assessment and Plan (1) New onset of congestive heart failure: Code(s): I50.9 - Heart failure, unspecified Status: Acute Assessment and Plan: Acute combined systolic and diastolic congestive heart failure. Cardiology consulted and appreciate input. Echo showing EF 25-30% and abnormal diastolic function with WMA. Aslo seen was a sessile thrombus and mobile thrombus visualized in the left ventricle. LHC showing 99% proximal LAD with filling defect in the diagonal branch felt to be complex. Continue carvedilol, lisinopril, ASA and atorvastatin. Plan for transfer to [place] when able (2) LV (left ventricular) mural thrombus: Code(s): I51.3 - Intracardiac thrombosis, not elsewhere classified Status: Acute Assessment and Plan: LV sessile thrombus and mobile thrombus visualized in the left ventricle noted on echocardiogram. Currently on Lovenox therapuetic dosing. Continue the same. (3) CAD (coronary artery disease): Code(s): I25.10 - Atherosclerotic heart disease of [place] coronary artery without angina pectoris Status: Acute Assessment and Plan: Patient with acute coronary syndrome with 99% LAD stenosis and LV mural thrombus. Complex lesion with plans to move him to [place] for further intervention. Continue aggressive medical managment. (4) Elevated troponin: Code(s): R77.8 - Other specified abnormalities of plasma proteins Status: Acute Assessment and Plan: Troponin elevated on admission to 0.126 but now decreasing. Related to acute coronary syndrome. (5) Ischemic cardiomyopathy: Code(s): I25.5 - Ischemic cardiomyopathy Status: Acute Assessment and Plan: EF 25-30% with abnormal diastolic function and basal inferior wall, mid anterior wall, basal inferoseptal, mid inferoseptal, basal anteroseptal, and mid anteroseptal hypokinesis. Related to above. Continue Coreg, Lisinopril. (6) Bilateral pleural effusion: Code(s): J90 - Pleural effusion, not elsewhere classified Status: Acute Assessment and Plan: Small bilateral pleural effusions still present on X-ray on 02/22/2021 related to acute CHF. Treatment as above. (7) Hypothyroid: Qualifiers: Hypothyroidism type: acquired Qualified Code(s): E03.9 - Hypothyroidism, unspecified Code(s): E03.9 - Hypothyroidism, unspecified Status: Acute Assessment and Plan: TSH slightly elevated at 5.940. Patient was started on low-dose levothyroxine. Will need to repeat thyroid studies as an outpatient in 4-6 weeks. (8) DVT prophylaxis: Code(s): Z29.9 - Encounter for prophylactic measures, unspecified Status: Acute Assessment and Plan: Therapeutic Lovenox. Subjective Date/time seen: 02/24/21 12:55 Interval history: 55-year-old admitted with heart failure Date of service 02/24/2021: He has a subtotal LAD stenosis involving a diagonal branch. He has extensive LV thrombus also. Severe cardiomyopathy with ejection fraction 25-30%. Currently is doing okay but needs transfer to an outside facility for high risk intervention. Denies any chest pain, shortness of breath or groin pain at this point Exam Narrative: Exam Narrative: AF 96.0 95/68 87 24 100% ra Gen - NARD Chest - few basilar inspiratory crackles, nml RR at the time of my exam CV - RRR S1/S2; Tele showing so significant dysrhythmias Abd - Soft, NT/ND, Positive BS Ext - No pedal edema. 2+ DP pulses bilaterally. Cath site clean and dry Psych - Nml mood and affect Skin - Warm and dry Objective Data Vital Signs Vital Signs: Vital Signs - 24 hr 02/23/21 14:00 02/23/21 15:30 02/23/21 16:15 Temperature 97.4 F L 98.0 F Pulse Rate 96 104 H 101 H Respiratory Rate 14 20 16 Blood Pressure 96/68 L 113/83 105/80 Pulse Oximetry 100 97 99 02/23/21 16:30 02/23/21 16:45 02/23/21 17:00 Temperature Pulse Rate 10
[2021-02-25] VITALS (16 sets, daily range): BP systolic 91–108; BP diastolic 60–73; PULSE 86–106; RESP 14–20; TEMP 36.3–36.6; O2SAT 10–100
[2021-02-25 05:22] LABS: Anion Gap 3 mmol/L (8-16); Blood Urea Nitrogen 9 mg/dL (9-20); Carbon Dioxide 29 mmol/L (22-30); Chloride 102 mmol/L (98-107); Estimated CRCL calculation 79 ml/min; Estimated Glomerular Filt Rate > 60; Glucose 110 mg/dL (75-110); Potassium 4.6 mmol/L (3.4-5.0); Sodium 134 mmol/L (137-145)
[2021-02-25] MEDS: ENOXAPARIN 100 MG/ML SYRINGE 90 MG SUB-Q ×2 (06:03→17:04)
[2021-02-25] MEDS: LEVOTHYROXINE SODIUM 25 MCG TABLET PO (06:03)
[2021-02-25] MEDS: lisinopriL 2.5 MG TABLET PO (07:51)
[2021-02-25] MEDS: ATORVASTATIN 40 MG TABLET PO (07:51)
[2021-02-25] MEDS: FUROSEMIDE 40 MG TABLET PO (07:51)
[2021-02-25] MEDS: ASPIRIN 81 MG CHEWABLE TABLET PO (07:51)
[2021-02-25] MEDS: carvediloL 3.125 MG TABLET PO ×2 (07:51→20:28)
--- NOTE | 2021-02-25 09:48 | PM.PNCARD ---
Progress Note: A&P Assessment and Plan (1) New onset of congestive heart failure: Code(s): I50.9 - Heart failure, unspecified Status: Acute Assessment and Plan: Continue current meds. (2) Elevated troponin: Code(s): R77.8 - Other specified abnormalities of plasma proteins Status: Acute Assessment and Plan: Continue current meds (3) Abnormal EKG: Code(s): R94.31 - Abnormal electrocardiogram [ECG] [EKG] Status: Acute Assessment and Plan: Suggestive of anterior myocardial infarction. Workup as above. (4) Bilateral pleural effusion: Code(s): J90 - Pleural effusion, not elsewhere classified Status: Acute Assessment and Plan: Stable. Clinically improving with diuresis. (5) Ischemic cardiomyopathy: Code(s): I25.5 - Ischemic cardiomyopathy Status: Acute Assessment and Plan: . EF 25-30% Continue carvedilol and lisinopril. Up titrate as able. Continue diuretics (6) CAD (coronary artery disease): Code(s): I25.10 - Atherosclerotic heart disease of [place] coronary artery without angina pectoris Status: Acute Assessment and Plan: High-grade proximal LAD with extension into a diagonal branch as detailed in cardiac catheterization results. Continue aspirin, enoxaparin, carvedilol, LANCE-inhibitor, statin (7) Acute systolic (congestive) heart failure: Code(s): I50.21 - Acute systolic (congestive) heart failure Status: Acute Assessment and Plan: As detailed above (8) LV (left ventricular) mural thrombus: Code(s): I51.3 - Intracardiac thrombosis, not elsewhere classified Status: Acute Assessment and Plan: On enoxaparin 1 milligram/kilogram q.12 hours Awaiting bed at [facility] Date/time seen: 02/25/21 09:48 Interval history: 55-year-old admitted with heart failure Date of service 02/25/2021: He has a subtotal LAD stenosis involving a diagonal branch. He has extensive LV thrombus also. Severe cardiomyopathy with ejection fraction 25-30%. Currently is doing okay but needs transfer to an outside facility for high risk intervention. Denies any chest pain, shortness of breath or groin pain at this point. Unfortunately he did trip and fall and hit his head last night. CT scan brain is negative Review of Systems Review of Systems: All systems reviewed & are unremarkable except as noted in HPI and below Constitutional: Constitutional: Reports as per HPI, Reports no additional constitutional complaints and Reports fatigue Eyes: Eyes: Reports as per HPI and Reports no additional eye complaints ENT: Reports system reviewed and no additional complaints, except as documented and Reports as per HPI Cardiovascular: Cardiovascular: Reports as per HPI, Reports no additional cardiovascular complaints, Denies chest pain, Denies diaphoresis, Denies leg edema, Denies lightheadedness, Denies palpitations, Denies dyspnea and Denies dyspnea on exertion Respiratory: Respiratory: Reports as per HPI, Reports no additional respiratory complaints, Denies dyspnea and Denies dyspnea on exertion Gastrointestinal: Gastrointestinal: Reports as per HPI, Reports no additional gastrointestinal complaints, Denies abdominal pain, Denies bloating, Denies nausea, Denies vomiting and Denies hematemesis Genitourinary: Genitourinary: Reports no additional male genitourinary complaints, Reports as per HPI and Denies urinary frequency Musculoskeletal: Musculoskeletal: Reports no additional musculoskeletal complaints and Reports as per HPI Integumentary/Breasts: Skin/Breast: Reports system reviewed and no additional complaints, except as docu and Reports as per HPI Neurologic: Reports system reviewed and no additional complaints, except as documented and Reports as per HPI Psychiatric: Psychiatric: Reports no additional psychiatric complaints and Reports as per HPI Endocrine: Endocrine: Reports no
--- NOTE | 2021-02-25 18:19 | PM.IMPN ---
Progress Note: A&P Assessment and Plan (1) New onset of congestive heart failure: Code(s): I50.9 - Heart failure, unspecified Status: Acute Assessment and Plan: Acute combined systolic and diastolic congestive heart failure. Cardiology consulted and appreciate input. Echo showing EF 25-30% and abnormal diastolic function with WMA. Also seen was a sessile thrombus and mobile thrombus visualized in the left ventricle. LHC showing severe proximal LAD with filling defect in the diagonal branch felt to be complex. Continue carvedilol, lisinopril, ASA and atorvastatin. Awaiting transfer to [place] when bed available (2) LV (left ventricular) mural thrombus: Code(s): I51.3 - Intracardiac thrombosis, not elsewhere classified Status: Acute Assessment and Plan: LV sessile thrombus and mobile thrombus visualized in the left ventricle noted on echocardiogram. Currently on Lovenox therapeutic dosing. Continue the same. (3) CAD (coronary artery disease): Code(s): I25.10 - Atherosclerotic heart disease of [place] coronary artery without angina pectoris Status: Acute Assessment and Plan: Patient with acute coronary syndrome with significant LAD stenosis and LV mural thrombus. Complex lesion with plans to move him to [place] for further intervention. Continue aggressive medical management. (4) Elevated troponin: Code(s): R77.8 - Other specified abnormalities of plasma proteins Status: Acute Assessment and Plan: Troponin elevated on admission to 0.126 but now decreasing. Related to acute coronary syndrome. (5) Ischemic cardiomyopathy: Code(s): I25.5 - Ischemic cardiomyopathy Status: Acute Assessment and Plan: EF 25-30% with abnormal diastolic function and basal inferior wall, mid anterior wall, basal inferoseptal, mid inferoseptal, basal anteroseptal, and mid anteroseptal hypokinesis. Related to above. Continue Coreg, Lisinopril. (6) Bilateral pleural effusion: Code(s): J90 - Pleural effusion, not elsewhere classified Status: Acute Assessment and Plan: Small bilateral (R>L) pleural effusions still present on X-ray on 02/24/2021 related to acute CHF. Treatment as above. (7) Hypothyroid: Qualifiers: Hypothyroidism type: acquired Qualified Code(s): E03.9 - Hypothyroidism, unspecified Code(s): E03.9 - Hypothyroidism, unspecified Status: Acute Assessment and Plan: TSH slightly elevated at 5.940. Patient was started on low-dose levothyroxine. Will need to repeat thyroid studies as an outpatient in 4-6 weeks. (8) DVT prophylaxis: Code(s): Z29.9 - Encounter for prophylactic measures, unspecified Status: Acute Assessment and Plan: Therapeutic Lovenox. (9) Fall: Code(s): W19.XXXA - Unspecified fall, initial encounter Status: Acute Assessment and Plan: CT brain showing nothing acute. He is on therapeutic dosing for lovenox. Monitor for latent symptoms. Add fall precautions. Subjective Date/time seen: 02/25/21 8:20am Interval history: 55-year-old admitted with heart failure and found to have subtotal LAD stenosis involving a diagonal branch, extensive LV thrombus, and severe cardiomyopathy with ejection fraction 25-30%. Plan for placement but still awaiting bed placement. He denies any CP or SOB. No n/v. He did walk to the BR where he felt nauseous then dizzy. He fell but denies LOC. He sustained a forehead laceration that required steristrips. He was able to walk back from the BR after the fall and only called the RN later once the laceration beegan to bleed. CT scan brain is negative Exam Narrative: Exam Narrative: AF 97.3 98/60 90 16 100% ra Gen - NARD HEENT - small horizontal dressing upper mid forehead that is clean and dry Chest - decreased BS bibasialr o/w clear, nml RR CV - RRR S1/S2 Abd - Soft, NT/N
[2021-02-26 02:00] VITALS: PULSE 90
[2021-02-26 04:00] VITALS: BP 96/57; PULSE 80; PULSE 86; RESP 20; TEMP 36.5; O2SAT 96; O2SAT 98
[2021-02-26 04:58] LABS: Basophils Absolute Auto 0.1 K/mm3 (0.0-0.1); Basophils Percent Auto 0.6 % (0.2-1.2); Eosinophils Absolute Auto 0.2 K/mm3 (0-0.3); Hematocrit 33.8 % (42.0-52.0); Hemoglobin 11.2 g/dL (14.0-18.0); Immature Granulocyte Absolute 0.02 K/mm3 (0.00-0.031); Immature Granulocyte Percent A 0.3 % (0-0.5); Lymphocytes Absolute Auto 2.51 K/mm3 (0.9-3.2); Lymphocytes Percent Auto 32.3 % (18.3-44.2); Mean Corpuscular HGB Conc 33.1 g/dl (32-36); Mean Corpuscular Hemoglobin 28.5 pg (26-34); Mean Platelet Volume 9.3 fl (7.4-10.4); Monocytes Absolute Auto 0.9 K/mm3 (0.1-0.6); Monocytes Percent Auto 11.3 % (2.6-8.5); Neutrophils Absolute Auto 4.1 K/mm3 (1.3-6.7); Neutrophils Percent Auto 52.5 % (45.5-73.1); Platelet Count Result 300 k/mm3 (150-375); Red Blood Count 3.93 M/mm3 (4.6-6.20); Red Cell Distribution Width 13.7 % (11.5-14.5); White Blood Count 7.8 K/mm3 (4.5-10.0)
[2021-02-26 05:17] LABS: Anion Gap 5 mmol/L (8-16); Blood Urea Nitrogen 9 mg/dL (9-20); Calcium 9.3 mg/dL (8.4-10.2); Carbon Dioxide 27 mmol/L (22-30); Chloride 102 mmol/L (98-107); Estimated CRCL calculation 79 ml/min; Estimated Glomerular Filt Rate > 60; Glucose 102 mg/dL (75-110); Potassium 3.9 mmol/L (3.4-5.0); Sodium 134 mmol/L (137-145)
[2021-02-26] MEDS: ENOXAPARIN 100 MG/ML SYRINGE 90 MG SUB-Q (05:58)
[2021-02-26] MEDS: LEVOTHYROXINE SODIUM 25 MCG TABLET PO (05:58)
[2021-02-26 06:00] VITALS: PULSE 88
--- NOTE | 2021-02-26 06:35 | P.CDI_ITS ---
CDI Query Clarification Request -Elevated troponins on problem list -Cardiology consult most likely type 2 infarct, EKG reveals age indeterminate anterior HI. Unlikely acute coronary syndrome and/or plaque rupture - High grade proximal LAD with extension into a diagonal branch and ischemic cardiomyopathy documented by cardiology. - abnormal EKG and suggestive of anterior HI documented by cardiology - Patient with acute coronary syndrome with significant LAD stenosis and LV mural thrombus and elevated troponin related to acute coronary syndrome documented by hospitalist -Acute coronary syndrome codes to acute ischemic heart disease (angina) Please clarify diagnosis: * Acute coronary syndrome/angina * Type 2 HI * Acute HI * Other * Unable to determine
[2021-02-26 07:56] VITALS: BP 99/67; PULSE 124; RESP 16; TEMP 36.4; O2SAT 100
[2021-02-26 08:00] VITALS: PULSE 86
[2021-02-26 08:02] VITALS: PULSE 83
[2021-02-26] MEDS: FUROSEMIDE 40 MG TABLET PO (08:02)
[2021-02-26] MEDS: ATORVASTATIN 40 MG TABLET PO (08:02)
[2021-02-26] MEDS: lisinopriL 2.5 MG TABLET PO (08:02)
[2021-02-26] MEDS: carvediloL 3.125 MG TABLET PO (08:02)
[2021-02-26] MEDS: ASPIRIN 81 MG CHEWABLE TABLET PO (08:04)
--- NOTE | 2021-02-26 08:58 | PM.PNCARD ---
Progress Note: A&P Assessment and Plan (1) New onset of congestive heart failure: Code(s): I50.9 - Heart failure, unspecified Status: Acute Assessment and Plan: Continue current meds. (2) Elevated troponin: Code(s): R77.8 - Other specified abnormalities of plasma proteins Status: Acute Assessment and Plan: Continue current meds (3) Abnormal EKG: Code(s): R94.31 - Abnormal electrocardiogram [ECG] [EKG] Status: Acute Assessment and Plan: Suggestive of anterior myocardial infarction. Workup as above. (4) Bilateral pleural effusion: Code(s): J90 - Pleural effusion, not elsewhere classified Status: Acute Assessment and Plan: Stable. Clinically improving with diuresis. (5) Ischemic cardiomyopathy: Code(s): I25.5 - Ischemic cardiomyopathy Status: Acute Assessment and Plan: . EF 25-30% Continue carvedilol and lisinopril. Up titrate as able. Continue diuretics (6) CAD (coronary artery disease): Code(s): I25.10 - Atherosclerotic heart disease of [place] coronary artery without angina pectoris Status: Acute Assessment and Plan: High-grade proximal LAD with extension into a diagonal branch as detailed in cardiac catheterization results. Continue aspirin, enoxaparin, carvedilol, LANCE-inhibitor, statin (7) Acute systolic (congestive) heart failure: Code(s): I50.21 - Acute systolic (congestive) heart failure Status: Acute Assessment and Plan: As detailed above (8) LV (left ventricular) mural thrombus: Code(s): I51.3 - Intracardiac thrombosis, not elsewhere classified Status: Acute Assessment and Plan: On enoxaparin 1 milligram/kilogram q.12 hours Transferring to [place]. Follow up with us Subjective Date/time seen: 02/26/21 08:58 Interval history: 55-year-old admitted with heart failure Date of service 02/26/2021: He has a subtotal LAD stenosis involving a diagonal branch. He has extensive LV thrombus also. Severe cardiomyopathy with ejection fraction 25-30%. No chest pain or shortness breath. Feels better. Transferring to [place] this morning Review of Systems Review of Systems: All systems reviewed & are unremarkable except as noted in HPI and below Constitutional: Constitutional: Reports as per HPI, Reports no additional constitutional complaints and Reports fatigue Eyes: Eyes: Reports as per HPI and Reports no additional eye complaints ENT: Reports system reviewed and no additional complaints, except as documented and Reports as per HPI Cardiovascular: Cardiovascular: Reports as per HPI, Reports no additional cardiovascular complaints, Denies chest pain, Denies diaphoresis, Denies leg edema, Denies lightheadedness, Denies palpitations, Denies dyspnea and Denies dyspnea on exertion Respiratory: Respiratory: Reports as per HPI, Reports no additional respiratory complaints, Denies dyspnea and Denies dyspnea on exertion Gastrointestinal: Gastrointestinal: Reports as per HPI, Reports no additional gastrointestinal complaints, Denies abdominal pain, Denies bloating, Denies nausea, Denies vomiting and Denies hematemesis Genitourinary: Genitourinary: Reports no additional male genitourinary complaints, Reports as per HPI and Denies urinary frequency Musculoskeletal: Musculoskeletal: Reports no additional musculoskeletal complaints and Reports as per HPI Integumentary/Breasts: Skin/Breast: Reports system reviewed and no additional complaints, except as docu and Reports as per HPI Neurologic: Reports system reviewed and no additional complaints, except as documented and Reports as per HPI Psychiatric: Psychiatric: Reports no additional psychiatric complaints and Reports as per HPI Endocrine: Endocrine: Reports no additional endocrine complaints, Reports as per HPI, Reports fatigue and Denies palpitations Hematologic/Lymphatic: Hematologic/Lymphatic: Reports n
--- NOTE | 2021-02-26 09:50 | PM.TDS ---
Transfer Discharge Sum: Prov Provider Date of admission: 02/20/21 18:43 Primary care physician: HEARING EXAMINER PHYSICIAN Admitting clinician: Agueda Campuzano MD Consults: 02/20/21 18:45 Consult to Physician Routine Comment: Consulting Provider: Alber Schneider Reason for consultation: new onset chf Has provider been notified: Yes Attending physician on discharge: Francisco Pérez Discharging clinician: Francisco Pérez Anticipated date of transfer: 02/26/21 Receiving physician/facility: [facility] accepted by Dr Lopes DS: Admitting Diagnosis Admitting Diagnosis Admitting Diagnosis: Shortness of breath DS: Discharge Diagnosis Discharge Diagnosis (1) New onset of congestive heart failure: Code(s): I50.9 - Heart failure, unspecified Status: Acute Assessment and Plan: Acute combined systolic and diastolic congestive heart failure. Cardiology consulted and appreciate input. Echo showing EF 25-30% and abnormal diastolic function with WMA. Also seen was a sessile thrombus and mobile thrombus visualized in the left ventricle. LHC showing severe proximal LAD with filling defect in the diagonal branch felt to be complex. No intervention but with plans to transfer to [facility] for further evaluation. Treated with carvedilol, lisinopril, ASA and atorvastatin. Bed available and patient transferred to [facility] 02/26/21 (2) LV (left ventricular) mural thrombus: Code(s): I51.3 - Intracardiac thrombosis, not elsewhere classified Status: Acute Assessment and Plan: LV sessile thrombus and mobile thrombus visualized in the left ventricle noted on echocardiogram. Treated with Lovenox therapeutic dosing. (3) CAD (coronary artery disease): Code(s): I25.10 - Atherosclerotic heart disease of [place] coronary artery without angina pectoris Status: Acute Assessment and Plan: Patient with acute coronary syndrome with significant LAD stenosis and LV mural thrombus. Complex lesion with plans to move him to [facility] for further intervention. No intervention done but he was started on aggressive medical therapy. (4) Elevated troponin: Code(s): R77.8 - Other specified abnormalities of plasma proteins Status: Acute Assessment and Plan: Troponin elevated on admission to 0.126 but now decreasing. Related to acute coronary syndrome. (5) Acute coronary syndrome: Code(s): I24.9 - Acute ischemic heart disease, unspecified Status: Acute Assessment and Plan: As above. (6) Ischemic cardiomyopathy: Code(s): I25.5 - Ischemic cardiomyopathy Status: Acute Assessment and Plan: EF 25-30% with abnormal diastolic function and basal inferior wall, mid anterior wall, basal inferoseptal, mid inferoseptal, basal anteroseptal, and mid anteroseptal hypokinesis. Related to above. He was treated with Coreg, Lisinopril. (7) Bilateral pleural effusion: Code(s): J90 - Pleural effusion, not elsewhere classified Status: Acute Assessment and Plan: Small bilateral (R>L) pleural effusions still present on X-ray on 02/24/2021 related to acute CHF. Treatment as above. (8) Hypothyroid: Qualifiers: Hypothyroidism type: acquired Qualified Code(s): E03.9 - Hypothyroidism, unspecified Code(s): E03.9 - Hypothyroidism, unspecified Status: Acute Assessment and Plan: TSH slightly elevated at 5.940. Patient was started on low-dose levothyroxine. Will need to repeat thyroid studies as an outpatient in 4-6 weeks. (9) Fall: Code(s): W19.XXXA - Unspecified fall, initial encounter Status: Acute Assessment and Plan: Patient had nausea then became dizzy and fell in the bathroom. He denied loss of consciousness. He did sustain a forehead laceration that was Steri-Strip. CT brain showing nothing acute. He is on therapeutic dosing for lovenox. We monitored for latent
== END 2021-02-26 08:47 | disposition short-term general hospital (02) | DRG 286 ==
LOC: ANHED 18:51 → ANHIMU 21:52 → ANH2MED 02-23 17:55 → ANHIMU 02-24 07:56 → ANH2MED 02-27 14:24 → ANHIMU 02-27 14:24
PROVIDERS: Emergency Medicine; Hospitalist; Internal Medicine; Internal Medicine Cardiovascular Disease; Specialist; Admitting Provider Hospitalist; Emergency Provider Emergency Medicine; Visit Provider Nurse Practitioner
PROC: 4A023N7 Measurement of Cardiac Sampling and Pressure, Left Heart, Percutaneous Approach (ICD-10-PCS; CPT 93454; principal; 2021-02-23 14:00)
DX: I25.10 Atherosclerotic heart disease of native coronary artery without angina pectoris (principal); I50.41 Acute combined systolic (congestive) and diastolic (congestive) heart failure; I24.9 Acute ischemic heart disease, unspecified; I51.3 Intracardiac thrombosis, not elsewhere classified; I25.5 Ischemic cardiomyopathy; R77.8 Other specified abnormalities of plasma proteins; R94.31 Abnormal electrocardiogram [ECG] [EKG]; E03.9 Hypothyroidism, unspecified; S01.81XA Laceration without foreign body of other part of head, initial encounter; R42 Dizziness and giddiness; W19.XXXA Unspecified fall, initial encounter
CPT/HCPCS: 36415; 70450; 71046; 80048; 80053; 80061; 83735; 83880; 84439; 84443; 84480; 84484; 85025; 85652; 86140; 93005; 93306; 93454; 99285; A9270; C1887; C1894; J1644; J1650; J1940; J2250; J3010; J7030; J7040; Q9957

== ENCOUNTER 2021-07-08 18:15 | Outpatient (RCR) | payer BC, OTHER, SELFPAY ==
[2021-04-10 11:45] VITALS: BP 86/58; PULSE 80; RESP 14; TEMP 36.8; O2SAT 100
== END 2021-07-08 19:30 | disposition home or self-care (01) ==
LOC: ANHCPREHAB 18:15
PROVIDERS: Visit Provider Internal Medicine Cardiovascular Disease
DX: Z95.5 Presence of coronary angioplasty implant and graft (principal)
CPT/HCPCS: 93798